=== PATIENT | male | born 1955 | race Hispanic/Latino ===

== ENCOUNTER 2024-01-29 17:44 | Emergency (ER) | payer MEDICARE ==
[~2024-01-29] VITALS: Ht 154.9 cm; Wt 65.8 kg
[2024-01-29 18:08] VITALS: BP 102/66
[2024-01-29] MEDS ORDERED: CEPHALEXIN500 MG PO (18:11)
[2024-01-31] MEDS ORDERED: CEPHALEXIN500 MG PO (15:53)
== END 2024-01-29 18:19 | disposition home or self-care (01) ==
LOC: ED 17:44
DX: S81.811A Laceration without foreign body, right lower leg, initial encounter (principal); X58.XXXA Exposure to other specified factors, initial encounter